=== PATIENT | male | born 1950 | race Caucasian/White ===

== ENCOUNTER 2018-07-04 13:30 | Inpatient (IN) | payer MEDICARE ==
[2018-07-08] MEDS ORDERED: VANCOMYCIN HCL 1,000 MG in DEXTROSE 5 % IN WATER 250 ML IVPB ONE ×2 (06:00)
[2018-07-08] MEDS ORDERED: CELECOXIB 100 MG CAPSULE PO ONE (06:00)
[2018-07-08] MEDS ORDERED: ACETAMINOPHEN 1,000 MG/100 ML BTL IV ONE (06:00)
[2018-07-08] MEDS ORDERED: FAMOTIDINE 20MG TABLET PO ONE (06:00)
[2018-07-08] MEDS ORDERED: MECLIZINE 25 MG TABLET PO ONE (06:00)
[2018-07-08] MEDS ORDERED: METOCLOPRAMIDE 10 MG TABLET PO ONE (06:00)
[2018-07-08 10:15] LABS: ABO GROUP O; ANTIBODY SCREEN NEGATIVE (NEGATIVE); RH TYPE POSITIVE
[2018-07-08] MEDS ORDERED: ZOLPIDEM TARTRATE 5 MG TABLET PO PRN (10:37)
[2018-07-08] MEDS ORDERED: BISACODYL 10 MG SUPP RC PRN (10:37)
[2018-07-08] MEDS ORDERED: HYDROCODONE/APAP 7.5/325MG TABLET PO PRN (10:37)
[2018-07-08] MEDS ORDERED: ACETAMINOPHEN W/ CODEINE 300MG/30MG TABLET PO PRN ×2 (10:37)
[2018-07-08] MEDS ORDERED: ONDANSETRON HCL IV 4 MG/2 ML VIAL IVP PRN (10:37)
[2018-07-08] MEDS ORDERED: METOCLOPRAMIDE HCL 10 MG/2 ML VIAL IVP PRN (10:37)
[2018-07-08] MEDS ORDERED: MAGNESIUM HYDROXIDE 30 ML UDC PO PRN (10:37)
[2018-07-08] MEDS ORDERED: HYDROCODONE/APAP 5/325MG TABLET PO PRN ×2 (10:37)
[2018-07-08] MEDS ORDERED: NALOXONE 0.4 MG/1 ML VIAL IVP PRN (10:37)
[2018-07-08] MEDS ORDERED: ACETAMINOPHEN 325 MG TAB PO PRN (10:37)
[2018-07-08] MEDS ORDERED: KETOROLAC 30 MG/ML VIAL IVP PRN ×2 (10:37)
[2018-07-08] MEDS ORDERED: HYDROMORPHONE HCL 2 MG/ML VIAL IM PRN ×2 (10:37)
[2018-07-08] MEDS ORDERED: AL HYDROX/MAG HYDROX 30ML UD PO PRN (10:37)
[2018-07-08] MEDS ORDERED: ACETAMINOPHEN W/ CODEINE 300MG/60MG TABLET PO PRN ×2 (10:37)
[2018-07-08] MEDS ORDERED: DIPHENHYDRAMINE HCL 25 MG CAPSULE PO PRN (10:37)
[2018-07-08] MEDS ORDERED: TRAMADOL HCL 50 MG TABLET PO PRN ×2 (10:37)
[2018-07-08] MEDS ORDERED: PROMETHAZINE HCL 12.5 MG in 0.9 % SODIUM CHLORIDE 100ML 50 ML IVPB PRN (10:37)
[2018-07-08] MEDS ORDERED: ROPIVACAINE HCL (NAROPIN) /PF 5MG/ML 20ML VIAL IV ONE (13:27)
[2018-07-08] MEDS ORDERED: DEXAMETHASONE 4 MG/ML 1ML VIAL IVP ONE (13:27)
[2018-07-08] MEDS ORDERED: EPHEDRINE SULFATE 50 MG/ML ML IV ONE (14:00)
[2018-07-08] MEDS ORDERED: PROPOFOL 10 MG/ML VIAL IV ONE (14:00)
[2018-07-08] MEDS ORDERED: MIDAZOLAM HCL 2MG/2ML VIAL IV ONE (14:00)
[2018-07-08] MEDS ORDERED: GLYCOPYRROLATE 0.2 MG/ML ML IV ONE (14:00)
[2018-07-08] MEDS ORDERED: **ER** KETAMINE HCL 500MG/10ML VIAL IV ONE (14:00)
[2018-07-08] MEDS ORDERED: DEXTROSE 5 % AND 0.9 % NACL 1,000 ML IV PRN (14:30)
[2018-07-08] MEDS ORDERED: TRANEXAMIC ACID 1,000 MG/10 ML ML IV ONE (16:23)
[2018-07-08] MEDS ORDERED: BUPIVACAINE 0.5% W/EPI MPF 30 ML VIAL IVP ONE (16:23)
--- NOTE | 2018-07-08 17:46 | Rehab Evaluation ---
Patient Information - Patient Information Diagnosis: L knee OA Ordered Treatment: PT Evaluate and Treat Status: Initial Evaluation Surgery: Yes (L TKA) Date of Surgery: 07/08/18 Past Medical/Surgical Hx: PAST MEDICAL/SURGICAL HISTORY Past Surgical History c scope hernia repair PMH - Respiratory Hx Respiratory Disorders No PMH - Cardiovascular Hx Cardiovascular Disorders Yes Hx Hypertension Yes: on meds good control Hx Heart Murmur Yes: has been told this in the past no problem Exercise Tolerance Fair PMH - Neuro Hx Dementia Yes: mild Comment: memory problems PMH - GI Hx Gastrointestinal Disorders Yes Hx Gastroesophageal Reflux Yes: occassionally with spicy food PMH - Hx Genitourinary Disorders No PMH - Endocrine Hx Endocrine Disorders Yes Hx Diabetes Yes Hx of NIDDM Yes: on metformin for 3-4 yrs ago Comment: doesnt check blood sugar PMH - Musculoskeletal Hx Musculoskeletal Disorders Yes Hx Arthritis Yes PMH - Psych Hx Psychiatric Problems No PMH - Hematology/Oncology Hx Hematology/Oncology No Disorders Premorbid Status: Detail (The patient had difficulty with ambulation due to knee pain. The patient has supervision/help of a friend at home for functional activities.) Social History: Detail (The patient lives in one story house with 2-3 steps at the enterance with one hand rail. The patient's bathroom is equipped with a tub/ shower combination, grab bars, hand held shower and an elevated toilet. The patient has a standard walker and a cane.) Precautions: [place], Fall, Other (WBAT L LE) - Time With Patient Total Time Spent With Patient (Min): 30 Treatment Procedures: Detail (Initial Evaluation, gait training) Subjective Information - Subjective Information Per Patient (The patient had no complaints of pain. The patient did complain of lightheadedness.) Objective Data - Mental Status Patient Orientation: Person, Place (The patient did follow simple commands well. PT did not question patient on birthdate or time. Patient was oriented to person and place and to surgical procedure.) - Visual Perception Appears within normal limits for therapeutic activities - ROM Not within normal limits (The patient's L knee AROM was limited as to be expected s/p surgery.) - Strength/Tone Not within normal limits (The patient's LE strength was not formally assessed due to s/p surgery. The patient's strength was functional ie: the patient was able to complete a SLR and ambulate.) - Bed Mobility Independent (The patient was independent with supine to and from sit transfer.) - Transfers Independent (The patient was independent with sit to and from stand transfer with occasional verbal cue to push up from surface. The patient required supervision for safety with toilet transfer.) - Balance Balance Sitting: Good Balance Standing: Fair (The patient had some unsteadiness when standing and required support of walker.) - Sensation Intact - Gait Detail (The patient ambulated 26 feet x1, 13 feet x 1 with standard walker WBAT L LE with CG for safety and due unsteadiness.) Therapy Assessment - Therapy Assessment Detail (The patient was independent with bed mobility, supervision with transfer and CG with ambulation due to unsteadiness with gait initially.) Problem List - Problem List Physical Therapy Problem List: Detail (1) Decreased L knee AROM and strength as to be expected following surgery. 2) CG with ambulation) Goals - Goals Physical Therapy Goals: 1) Independent with HEP 2) The patient will ambulate independently with assistive device household distances WBAT on the L LE. 3) The patient will ambulate on stairs using proper technique with supervision for safety. 4) The patient will be independent with all transfers Prognosis - Prognosis Good Plan - Plan Physical Therapy Plan: PT 1-2 times a day for gait training and instruction in HEP until all inpatient PT goals have been met.
[2018-07-08] MEDS: HYDROCODONE/APAP 7.5/325MG TABLET PO PRN (18:50)
[2018-07-08] MEDS: DONEPEZIL HCL 5 MG TABLET PO SCH (21:19)
[2018-07-08] MEDS: METFORMIN 500 MG TABLET PO SCH (21:19)
[2018-07-08] MEDS: DOCUSATE SODIUM 100 MG CAPSULE PO SCH (21:19)
[2018-07-08] MEDS: FERROUS SULFATE 325 MG TAB PO SCH (21:19)
[2018-07-08] MEDS: VANCOMYCIN HCL 1,000 MG in DEXTROSE 5 % IN WATER 250 ML IVPB SCH ×2 (22:07)
[2018-07-09] MEDS: HYDROCODONE/APAP 7.5/325MG TABLET PO PRN (04:30)
[2018-07-09 06:55] LABS: HEMATOCRIT 39.8 % (42.0-52.0); HEMOGLOBIN 13.6 gm/dl (14.0-18.0)
--- NOTE | 2018-07-09 10:01 | Physical Therapy Tx Note ---
Physical Therapy Tx Note - Treatment Note Tolerated: Good Total Time Spent With Patient: 30 Physical Therapy Tx Note: Detail (The patient was up in chair when PT arrived. The patient was oriented this am to self only. The patient was following simple commands, but not more complex commands. The patient was independent with sit to stand and ambulated with standard walker a distance of 108 feet x 1 with CG and occasional cues for proper technique for using walker. The patient at times did not hold onto walker with L hand, supinating L forearm. The patient ambulated on 3 steps with use of one railing and folded walker with CG of 2 for safety and verbal cues for proper technique. The patient completed the following TKA exercises with verbal cues to recall proper technique: seated heel slides, ankle pumps, quad sets, hamstring sets, gluteal sets, SLR. The patient is able to physically complete mobility and TKA exercises but requires CG and verbal cueing for proper technique due to cognitive status. Since patient lives alone, feel the patient would benefit from subacute Rehab to improve the patient's safety with mobilty and safety judgement.) Physical Therapy Problem List: Detail (1) Decreased L knee AROM and strength as to be expected following surgery. 2) CG with ambulation) Physical Therapy Goals: 1) Independent with HEP 2) The patient will ambulate independently with assistive device household distances WBAT on the L LE. 3) The patient will ambulate on stairs using proper technique with supervision for safety. 4) The patient will be independent with all transfers Physical Therapy Plan: Will monitor patient until discharge from [facility]. Patient is requiring CG/supervision with mobility due to cognitive status.
[2018-07-09] MEDS: RIVAROXABAN 10 MG TABLET PO SCH (10:18)
[2018-07-09] MEDS: SIMVASTATIN 20 MG TABLET PO SCH (10:18)
[2018-07-09] MEDS: METOPROLOL SUCC 50 MG TABLET PO SCH (10:19)
[2018-07-09] MEDS: CELECOXIB 100 MG CAPSULE PO SCH (10:19)
[2018-07-09] MEDS: AMLODIPINE BESYLATE 5MG TAB PO SCH (10:19)
[2018-07-09] MEDS: FERROUS SULFATE 325 MG TAB PO SCH ×2 (10:19→21:20)
[2018-07-09] MEDS: LOSARTAN POTASSIUM 100 MG TABLET PO SCH (10:19)
[2018-07-09] MEDS: DOCUSATE SODIUM 100 MG CAPSULE PO SCH ×2 (10:19→21:20)
[2018-07-09] MEDS: HYDROCHLOROTHIAZIDE 25 MG TABLET PO SCH (10:19)
--- NOTE | 2018-07-09 11:01 | Rehab Evaluation ---
Patient Information - Patient Information Diagnosis: L knee OA Ordered Treatment: OT Evaluate and Treat Status: Initial Evaluation Surgery: Yes (L TKA) Date of Surgery: 07/08/18 Past Medical/Surgical Hx: PAST MEDICAL/SURGICAL HISTORY Past Surgical History c scope hernia repair PMH - Respiratory Hx Respiratory Disorders No PMH - Cardiovascular Hx Cardiovascular Disorders Yes Hx Hypertension Yes: on meds good control Hx Heart Murmur Yes: has been told this in the past no problem Exercise Tolerance Fair PMH - Neuro Hx Dementia Yes: mild Comment: memory problems PMH - GI Hx Gastrointestinal Disorders Yes Hx Gastroesophageal Reflux Yes: occassionally with spicy food PMH - Hx Genitourinary Disorders No PMH - Endocrine Hx Endocrine Disorders Yes Hx Diabetes Yes Hx of NIDDM Yes: on metformin for 3-4 yrs ago Comment: doesnt check blood sugar PMH - Musculoskeletal Hx Musculoskeletal Disorders Yes Hx Arthritis Yes PMH - Psych Hx Psychiatric Problems No PMH - Hematology/Oncology Hx Hematology/Oncology No Disorders Premorbid Status: Detail (The patient had difficulty with ambulation due to knee pain. The patient has supervision/help of a friend at home for functional activities.) Social History: Detail (The patient lives alone in one story house with 2-3 steps at the entrance with one hand rail. The patient's bathroom is equipped with a tub/shower combination, grab bars, hand held shower and an elevated toilet with grab bar. The patient has a standard walker and a cane. Pt reports he has a friend that helps him with IADLs. Pt was inconsistent re: home situation as he reported that he has a 2 story house with no steps when ask a second time about his living situation.) Precautions: [place], Fall, Other (WBAT L LE) - Time With Patient Total Time Spent With Patient (Min): 40 Treatment Procedures: Detail (OT eval low complexity) Subjective Information - Subjective Information Per Patient Objective Data - Pain Pain Present: Yes (11/03) - Mental Status Patient Orientation: Person (Pt oriented to his birthday, not to location, age, month or year. He required verbal cues for self care tasks and mobility.) - Visual Perception Appears within normal limits for therapeutic activities - ROM Within normal limits (William UE AROM WNL) - Strength/Tone Within normal limits (William UE strength 5/5) - Coordination Appears within normal limits for therapeutic activities - Transfers Needs Assist (Sit to stand from chair with SBA and verbal cues for correct technique) - Balance Balance Sitting: Good Balance Standing: Fair - Sensation Intact - Gait Detail (Pt ambulating in room with standard walker and CG assist as well as verbal cueing for correct walker placement.) - ADL's/IADL's Detail (Pt educated re: modified LE dressing techniques, he was able to doff briefs and don underwear and sweatpants with verbal cues and SBA to stand when pulling pants over hips. Reviewed kitchen and shower safety and modifications, pt will require continued teaching due to impaired cognition.) Therapy Assessment - Therapy Assessment Detail (Pt requires verbal cueing and CG assist for mobility and ADLs due to impaired cognition. Pt very cooperative and pleasant throughout evaluation. He would benefit from short IP rehab stay to maximize his safety and Ind with ADLs/IADLs as he lives alone.) Problem List - Problem List Physical Therapy Problem List: Detail (1) Decreased L knee AROM and strength as to be expected following surgery. 2) CG with ambulation) Occupational Therapy Problem List: Detail (1. Decreased Ind with dressing. 2. Decreased Ind and safety with mobility. 3. Decreased cognition.) Goals - Goals Physical Therapy Goals: 1) Independent with HEP 2) The patient will ambulate independently with assistive device household distances WBAT on the L LE. 3) The patient will ambulate on stairs using proper technique with supervision for safety. 4) The patient will be independent with all transfers Occupational Therapy Goals: 1. Pt will be oriented x 3 and be Ind with verbalizing modified dressing techniques. 2. Pt will be safe and Ind with total body dressing using modified dressing techniques. 3. Pt will be safe and Ind with functional mobility needed for ADLs/IADLs. Prognosis - Prognosis Good Plan - Plan Physical Therapy Plan: Will monitor patient until discharge from [facility]. Patient is requiring CG/supervision with mobility due to cognitive status. Occupational Therapy Plan: Will continue to follow patient to assess needs and provide treatment to maximize safety and Ind. Recommend short term rehab stay to address safety, modified ADL techniques and functional mobility.
[2018-07-09] MEDS: VANCOMYCIN HCL 1,000 MG in DEXTROSE 5 % IN WATER 250 ML IVPB SCH ×2 (11:46)
[2018-07-09] MEDS: DONEPEZIL HCL 5 MG TABLET PO SCH (21:20)
[2018-07-09] MEDS: METFORMIN 500 MG TABLET PO SCH (21:20)
[2018-07-10 07:05] LABS: HEMOGLOBIN 12.6 gm/dl (14.0-18.0)
[2018-07-10] MEDS: CELECOXIB 100 MG CAPSULE PO SCH (09:52)
[2018-07-10] MEDS: LOSARTAN POTASSIUM 100 MG TABLET PO SCH (09:53)
[2018-07-10] MEDS: HYDROCHLOROTHIAZIDE 25 MG TABLET PO SCH (09:53)
[2018-07-10] MEDS: FERROUS SULFATE 325 MG TAB PO SCH ×2 (09:53→22:02)
[2018-07-10] MEDS: DOCUSATE SODIUM 100 MG CAPSULE PO SCH ×2 (09:53→22:01)
[2018-07-10] MEDS: SIMVASTATIN 20 MG TABLET PO SCH (09:54)
[2018-07-10] MEDS: METOPROLOL SUCC 50 MG TABLET PO SCH (09:54)
[2018-07-10] MEDS: RIVAROXABAN 10 MG TABLET PO SCH (09:54)
[2018-07-10] MEDS: AMLODIPINE BESYLATE 5MG TAB PO SCH (09:54)
--- NOTE | 2018-07-10 14:18 | Physical Therapy Tx Note ---
Physical Therapy Tx Note - Treatment Note Tolerated: Good Total Time Spent With Patient: 20 Physical Therapy Tx Note: Detail (The patient ambulated with standard walker a distance of 120 feet x 1 WBAT on the L LE with occasional verbal cues for proper technique. The patient completed the following TKA exercises including: heel slides seated, quad sets, gluteal sets, ankle pumps, and hamstring sets all x 10 reps. The patient was left seated with chair alarm in place and call light within reach.) Physical Therapy Problem List: Detail (1) Decreased L knee AROM and strength as to be expected following surgery. 2) CG with ambulation) Physical Therapy Goals: 1) Independent with HEP 2) The patient will ambulate independently with assistive device household distances WBAT on the L LE. 3) The patient will ambulate on stairs using proper technique with supervision for safety. 4) The patient will be independent with all transfers Physical Therapy Plan: Will monitor patient until discharge from [facility]. Patient is requiring CG/supervision with mobility due to cognitive status.
[2018-07-10] MEDS: METFORMIN 500 MG TABLET PO SCH (22:01)
[2018-07-10] MEDS: DONEPEZIL HCL 5 MG TABLET PO SCH (22:02)
[2018-07-11] MEDS: HYDROCHLOROTHIAZIDE 25 MG TABLET PO SCH (09:43)
[2018-07-11] MEDS: CELECOXIB 100 MG CAPSULE PO SCH (09:43)
[2018-07-11] MEDS: DOCUSATE SODIUM 100 MG CAPSULE PO SCH (09:43)
[2018-07-11] MEDS: METOPROLOL SUCC 50 MG TABLET PO SCH (09:44)
[2018-07-11] MEDS: LOSARTAN POTASSIUM 100 MG TABLET PO SCH (09:44)
[2018-07-11] MEDS: AMLODIPINE BESYLATE 5MG TAB PO SCH (09:44)
[2018-07-11] MEDS: RIVAROXABAN 10 MG TABLET PO SCH (09:45)
[2018-07-11] MEDS: SIMVASTATIN 20 MG TABLET PO SCH (09:45)
[2018-07-11] MEDS: FERROUS SULFATE 325 MG TAB PO SCH (09:47)
--- NOTE | 2018-07-11 18:22 | Operative Note ---
DATE OF SURGERY: 07/08/2018 PREOPERATIVE DIAGNOSIS: End-stage left knee arthrosis. POSTOPERATIVE DIAGNOSIS: End-stage left knee arthrosis. OPERATION: Left total knee arthroplasty. SURGEON: Scott Romero M.D. ANESTHESIA: Spinal. ANESTHESIA PROVIDER: GROVER Stanford COMPLICATIONS: None. BLOOD LOSS: Minimal. TOURNIQUET TIME: Approximately 65 minutes. OPERATIVE FINDINGS: A large knee seec-dc-autt erosion medial compartment. COMPONENTS PLACED: 2 gm Vancomycin cement, Knapp-Nephew Journey II Oxinium size 8 femoral component size 7 tibial baseplate, 38 mm cemented patella component, and 13 mm thick poly insert. . INDICATION FOR OPERATION: This a 68-year-old large male who has persistent pain and dysfunction in his knee for several years, failed nonoperative treatment, and scheduled for knee replacement. I explained the risks, benefits of surgery to him in detail for his diagnosis, and procedures, including but not limited to, infection, nerve injury, vessel injury, stiffness, pain, numbness, tingling in the knee, periprosthetic fracture, need for resection arthroplasty, should components become infected, loosen, nerve injury, vessel injury, blood clot, and need for further procedures, need for anticoagulation to prevent blood clot and the risks associated with these medications. All of his questions were answered, course was outlined, and he agreed to proceed. PROCEDURE: Patient was brought to the O.R. and placed in the supine position, prepped for surgery. Spinal anesthesia was introduced and his left lower extremity and knee were prepped and draped in sterile fashion. The left knee was prepped again with ChloraPrep and was draped, and intraoperative time-out was performed. Next, the leg was exsanguinated with an Esmarch, the knee was flexed, and tourniquet inflated to 250 mmHg pressure. Next, the skin was subcutaneously dissected down, capsule was incised medially along the medial border of the patella to the tibial tubercle. Everted the patella. Partially resected around the patellar fat pad. Elevated the capsule subperiosteally medially resected towards the meniscus. Severe erosive arthrosis and [id number] medial compartment. We drilled the intercondylar drill hole and inserted intramedullary guide lilian, 6 -degree cutting block, aligned the distal femoral condyles, and pinned it in place in the +2 mm position and cut the distal femoral condyles. Next, we sized the femur to be a size 8 through the previously placed pinholes. We placed the 5-in-1 cutting jig. We dialed the anterior cuts so it would come out flush without notch, and we cut that cut, pinned it, and cut the remainder of the chamfer cuts. Next, we place a size 8 trial component, centered it, pinned it, removed osteophytes off the periphery, inserted a resection collet, reamed out and box osteotome out the cruciate bone block. Next, we took the knee into flexion. Attention was turned to the tibia. We seated the spikes into the tubercle groove two fingerbreadths distally off the anterior tibial cortex for a slight posterior slope. Referenced for a 7 mm cut off the higher lateral plateau. They were pinned provisionally with two anterior posterior pins. Recheck the alignment with a tibial cutting jig using a drop lilian centered it on the tibial anatomic axis and cross-pinned completing its fixation, and cut the tibia. Next, we removed osteophytes from the posterior femoral condyles using a curved osteotome. Checked the flexion and extension gaps. This sized up to a size 13 mm. This allowed 2-3 mm of varus valgus laxity in flexion and extension. Overall alignment cuts in extension was anatomic valgus orientation alignment lilian centered in the hip joint and ankle joint. Next, took the knee in flexion, we sized tibial baseplate to size 7, replaced all trial components, set the rotation of the tibial baseplate again in extension using alignment rods, marked electrocautery marin anterior tibial cortex. Attention was turned to the patella. Set the cutting jig to allow for a 9 mm thick patellar insert. Cut with a cutting jig, remeasure was right on and chamfered off the lateral patella facet and measured to be a 38. I drilled three peg holes, inserted the 35 component. The patella tracked nicely handsfree and had full extension and flexion to 140-150 degrees again symmetric flexion-extension gaps. Mixed cement. Changed gloves and brought in clean sheets and flexed the knee, exposed the proximal tibia and seated the tibial baseplate of the previously placed electrocautery marin and pinned it in place with two headed of pins and then reamed out keel punch, keel hole. Next, we placed bone plug in the femoral canal hole, placed the drill in the tibial keel hole, and pre-coated both surfaces then packed down the tibial component and then the femoral component and clamped down the patellar component and placed a trial tibial poly liner and held the knee in extension and cement hardened. Once the cement hardened, took the knee into flexion, distracted the knee with bone hook and sponge, removed all excess cement off the edge of the components, irrigated again, and then we injected a mixture of 0.5% Marcaine with 2 grams of Tranexamic Acid and Exparel in the posterior capsule mediolateral and mediolateral periosteum working out deep superficially and vas medialis quadriceps patellar, and quadriceps tendons, as well as subcutaneous then inserted the real tibial poly insert and verified it was interlocked medially and laterally. Final range of motion revealed the same. We irrigated the area copiously, closed the capsule in flexion using a running # 2 quill suture. We closed the skin with 2-0 Vicryl and provisional dressing was placed with Acticoat and ABD's and Fluff's and that will be removed tomorrow prior to discharge and changed to KENNEY dressing and be left on for one week. cc: Dr. Alejandro Quinonez JOB NUMBER: [id number] MTDD
== END 2018-07-11 11:10 | DRG 470 ==
LOC: MEDSURG 07-08 09:25
PROVIDERS: ADMIT Orthopaedic Surgery; ATTEND Orthopaedic Surgery
PROC: 0SRD069 Replacement of Left Knee Joint with Oxidized Zirconium on Polyethylene Synthetic Substitute, Cemented, Open Approach (ICD-10-PCS; principal; 2018-07-08 12:00)
DX: M17.12 Unilateral primary osteoarthritis, left knee (principal); I10 Essential (primary) hypertension; E78.00 Pure hypercholesterolemia, unspecified; E11.9 Type 2 diabetes mellitus without complications; E78.5 Hyperlipidemia, unspecified
CPT/HCPCS: 36416; 82948; 85014; 85018; 86850; 86900; 86901; 97110; J1885; J7060